=== PATIENT | male | born 1985 | race Caucasian/White ===

== ENCOUNTER 2021-05-03 12:32 | Emergency (ER) | payer OTHER ==
[~2021-05-03] VITALS: Ht 177.8 cm; Wt 82.0 kg
[2021-05-03 12:36] VITALS: BP 118/73
[2021-05-03] MEDS ORDERED: INSULIN (12:36)
[2021-05-03] MEDS ORDERED: ACETAMINOPHEN 325MG TABLET PO ONE (13:00)
[2021-05-03] MEDS ORDERED: BACITRACIN ZINC OINT UDPKT TOP ONE (13:00)
[2021-05-03] MEDS ORDERED: TETANUS, DIPHTHERIA, PERTUSSIS VAC/PF 0.5ML (>10YR OLD) IM ONE (13:00)
[2021-05-03] MEDS ORDERED: LIDOCAINE HCL/EPINEPHRINE 1%-EPI 1:100,000 20 ML VIAL INFIL ONE (13:00)
[2021-05-03] MEDS ORDERED: ACET-2708 MT (14:22)
[2021-05-03] MEDS ORDERED: BO1 TP (14:22)
== END 2021-05-03 15:11 | disposition home or self-care (01) ==
LOC: ER 12:32
DX: S01.81XA Laceration without foreign body of other part of head, initial encounter (principal); X79.XXXA Intentional self-harm by blunt object, initial encounter; F40.240 Claustrophobia; Y93.89 Activity, other specified; Y92.143 Cell of prison as the place of occurrence of the external cause; E11.9 Type 2 diabetes mellitus without complications
CPT/HCPCS: 12002; 90471; 90715; 99283

== ENCOUNTER 2022-08-26 00:43 | Inpatient (IN) | payer SELFPAY ==
[2022-08-26] VITALS (31 sets, daily range): BP systolic 109–141; BP diastolic 57–92
[~2022-08-26] VITALS: Ht 175.3 cm; Wt 81.6 kg
[~2022-08-26 00:43] MED LIST: ACET-2708 MT; BO1 TP; INSULIN
[2022-08-26] MEDS ORDERED: MIDAZOLAM HCL 2 MG/2 ML VIAL ONE (01:14)
[2022-08-26] MEDS ORDERED: PROPOFOL 10MG/ML 100ML 100 ML IV NR (01:15)
[2022-08-26] MEDS ORDERED: ONDANSETRON HCL 4MG/2ML INJ IV STA (01:26)
[2022-08-26] MEDS ORDERED: MORPHINE SULFATE 4 MG/ML CPJ (NOT FOR IM USE) IV STA (01:26)
[2022-08-26] MEDS ORDERED: SODIUM CHLORIDE 0.9% 1,000 ML IV ONE (01:30)
[2022-08-26] MEDS ORDERED: MIDAZOLAM HCL 2 MG/2 ML VIAL IV ONE (01:30)
[2022-08-26] MEDS ORDERED: PROPOFOL 10MG/ML 100ML 100 ML IV ONE ×2 (01:30→02:30)
[2022-08-26] MEDS ORDERED: SUCCINYLCHOLINE CHLORIDE 200MG/10ML IV ONE ×2 (01:30→09:53)
[2022-08-26] MEDS ORDERED: ETOMIDATE 2MG/ML 10ML VIAL IV ONE ×2 (01:30→09:53)
[2022-08-26 02:03] LABS: BG BASE EXCESS -2.6 mmol/L (-2.0-2.0); BG CARBOXYHEMOGLOBIN 1.1 % (0.5-1.5); BG DEOXYHEMOGLOBIN 2.4 % (0.0-5.0); BG FRACTION INSPIRED OXYGEN 40; BG HCO3 ACT 23.5 mmol/L (22.0-26.0); BG METHEMOGLOBIN 0.5 % (0.0-1.5); BG OXYGEN SATURATION 97.6 % (92.0-98.5); BG PCO2 45.5 mmHg (35.0-45.0); BG PH 7.331 (7.350-7.450); BG PO2 108.3 mmHg (75.0-100.0); BG SAMPLE SITE RIGHT RADIAL; BG TOTAL HEMOGLOBIN 14.2 g/dL (12.0-18.0); BG VENT MODE VENT - AC
[2022-08-26 02:15] LABS: CLARITY URINE CLEAR (CLEAR); COLOR URINE YELLOW (YELLOW); KETONES URINE 3+ (NEGATIVE); LEUKOCYTE ESTERASE URINE NEGATIVE (NEGATIVE); NITRITE URINE NEGATIVE (NEGATIVE); OCCULT BLOOD URINE NEGATIVE (NEGATIVE); PH URINE 6.5 (4.5-8.0); PROTEIN URINE NEGATIVE (NEGATIVE); SPECIFIC GRAVITY URINE 1.011 (1.005-1.030)
[2022-08-26 02:25] LABS: *AMPHETAMINES SCREEN URINE PRESUMTIVE POSITIVE (NEGATIVE); *BARBITURATES SCREEN URINE NEGATIVE (NEGATIVE); *BENZODIAZEPINES SCREEN URINE PRESUMTIVE POSITIVE (NEGATIVE); *COCAINE SCREEN URINE NEGATIVE (NEGATIVE); CANNABINOID URINE SCREEN PRESUMTIVE POSITIVE (NEGATIVE); METHADONE URINE SCREEN NEGATIVE (NEGATIVE); OPIATES URINE SCREEN NEGATIVE (NEGATIVE); PHENCYCLIDINE URINE SCREEN NEGATIVE (NEGATIVE)
[2022-08-26] MEDS ORDERED: MIDAZOLAM HCL 100 MG in DEXT 5% WATER 80 ML IV ONE (02:30)
[2022-08-26] MEDS ORDERED: MIDAZOLAM HCL 100 MG in DEXT 5% WATER 80 ML IV NR (02:30)
[2022-08-26 03:23] LABS: BASOPHILS % 0.3 % (0.0-2.0); EOSINOPHILS % 0.9 % (0.0-5.0); HEMATOCRIT. 39.7 % (42.0-52.0); HEMOGLOBIN. 13.2 g/dL (14.0-18.0); LYMPHOCYTES % 8.1 % (20.0-50.0); MEAN CORPUSCULAR HEMOGLOBIN 27.7 pg (28.0-32.0); MEAN CORPUSCULAR VOLUME 83.3 fL (80.0-94.0); MEAN PLATELET VOLUME 7.9 fl (7.4-10.4); MONOCYTES % 6.5 % (2.0-8.0); NEUTROPHILS % 84.2 % (40.0-76.0); PLATELET 265 x1000/uL (130-400); RED BLOOD CELL COUNT 4.77 mill/uL (4.7-6.1); RED CELL DISTRIBUTION WIDTH 15.1 % (11.6-14.6)
[2022-08-26 03:33] LABS: PROTHROMBIN TIME 11.2 sec (9.6-11.0)
[2022-08-26 03:34] LABS: CHLORIDE 105 mEq/L (98-107)
[2022-08-26 03:54] LABS: CREATINE KINASE 1698 IU/L (39-308); ETHANOL BLOOD < 10 mg/dL
[2022-08-26] MEDS ORDERED: MORPHINE SULFATE 4 MG/ML CPJ (NOT FOR IM USE) IV NR (05:15)
[2022-08-26] MEDS ORDERED: ONDANSETRON HCL 4MG/2ML INJ IV NR (05:15)
[2022-08-26] MEDS ORDERED: ONDANSETRON HCL 4MG/2ML INJ IV PRN (06:00)
[2022-08-26] MEDS ORDERED: PROPOFOL 10MG/ML 100ML 100 ML IV PRN (06:00)
[2022-08-26] MEDS ORDERED: IPRATROPIUM/ALBUTEROL 0.5-3(2.5)MG/3ML NEB HHN PRN (06:00)
[2022-08-26] MEDS ORDERED: DEXTROSE 50% WATER 50ML SYRINGE IV PRN (06:45)
[2022-08-26 06:58] LABS: BG BASE EXCESS 0.2 mmol/L (-2.0-2.0); BG CARBOXYHEMOGLOBIN 0.7 % (0.5-1.5); BG DEOXYHEMOGLOBIN 0.8 % (0.0-5.0); BG FRACTION INSPIRED OXYGEN 40; BG HCO3 ACT 26.4 mmol/L (22.0-26.0); BG METHEMOGLOBIN 0.6 % (0.0-1.5); BG OXYGEN SATURATION 99.2 % (92.0-98.5); BG OXYHEMOGLOBIN 97.9 % (94.0-97.0); BG PCO2 48.5 mmHg (35.0-45.0); BG PH 7.354 (7.350-7.450); BG PO2 157.2 mmHg (75.0-100.0); BG SAMPLE SITE RIGHT RADIAL; BG TOTAL HEMOGLOBIN 14.5 g/dL (12.0-18.0); BG VENT MODE VENT - AC
[2022-08-26 07:20] LABS: CREATINE KINASE MB FRACTION 16.5 ng/mL (0.5-3.6)
[2022-08-26 07:23] LABS: VITAMIN B12 SERUM 451 pg/mL (211-911)
[2022-08-26] MEDS ORDERED: KCL 20MEQ/100ML PREMIX 100 ML IV NR (08:00)
[2022-08-26 08:17] LABS: PHOSPHORUS 3.7 mg/dL (2.5-4.9)
[2022-08-26] MEDS: INSULIN LISPRO 100 UNITS/ML SUBCUT SCH ×4 (08:20→21:00)
[2022-08-26] MEDS: DEXT 5%/0.45% NACL 1000ML 1,000 ML IV SCH ×2 (09:18→21:19)
[2022-08-26] MEDS: PANTOPRAZOLE SODIUM 40 MG/VIAL IV SCH (09:20)
[2022-08-26] MEDS: BLOOD SUGAR DIAGNOSTIC STRIP TEST SCH ×4 (09:21→21:19)
[2022-08-26] MEDS: ENOXAPARIN 40MG/0.4ML SYR SUBCUT SCH (09:21)
[2022-08-26] MEDS ORDERED: FENTANYL 2500MCG/250ML PMX 250 ML IV PRN (09:30)
[2022-08-26] MEDS: FENTANYL CITRATE 2,500 MCG in SODIUM CHLORIDE 0.9% 200 ML IV PRN (09:49)
[2022-08-26] MEDS ORDERED: VECURONIUM BROMIDE 10 MG/VIAL IV ONE (09:53)
[2022-08-26] MEDS ORDERED: MIDAZOLAM 100MG/100ML PMX 100 ML IV PRN (11:00)
[2022-08-26] MEDS: MIDAZOLAM HCL 100 MG in SODIUM CHLORIDE 0.9% 100 ML IV PRN (12:23)
[2022-08-26] MEDS: PROPOFOL 10MG/ML 100ML 100 ML IV PRN ×2 (12:25→20:05)
[2022-08-26] MEDS: IPRATROPIUM/ALBUTEROL 0.5-3(2.5)MG/3ML NEB HHN SCH ×2 (14:03→20:10)
[2022-08-26 14:43] LABS: CREATINE KINASE MB FRACTION 12.8 ng/mL (0.5-3.6)
[2022-08-26 16:24] LABS: CREATINE KINASE MB FRACTION 9.8 ng/mL (0.5-3.6)
[2022-08-26 20:23] LABS: CREATINE KINASE MB FRACTION 6.6 ng/mL (0.5-3.6)
[2022-08-27] VITALS (48 sets, daily range): BP systolic 103–158; BP diastolic 58–100
[2022-08-27] MEDS: PROPOFOL 10MG/ML 100ML 100 ML IV PRN ×7 (00:13→23:36)
[2022-08-27] MEDS: MIDAZOLAM HCL 100 MG in SODIUM CHLORIDE 0.9% 100 ML IV PRN ×2 (01:30→11:46)
[2022-08-27 02:04] LABS: CREATINE KINASE MB FRACTION 4.2 ng/mL (0.5-3.6)
[2022-08-27] MEDS: IPRATROPIUM/ALBUTEROL 0.5-3(2.5)MG/3ML NEB HHN SCH ×4 (02:08→20:04)
[2022-08-27 05:52] LABS: BASOPHILS % 0.2 % (0.0-2.0); EOSINOPHILS % 2.2 % (0.0-5.0); HEMATOCRIT. 36.1 % (42.0-52.0); HEMOGLOBIN. 12.1 g/dL (14.0-18.0); LYMPHOCYTES % 15.4 % (20.0-50.0); MEAN CORPUSCULAR HEMOGLOBIN 28.3 pg (28.0-32.0); MEAN PLATELET VOLUME 7.9 fl (7.4-10.4); NEUTROPHILS % 72.2 % (40.0-76.0); PLATELET 252 x1000/uL (130-400); RED BLOOD CELL COUNT 4.29 mill/uL (4.7-6.1); RED CELL DISTRIBUTION WIDTH 15.3 % (11.6-14.6)
[2022-08-27 06:02] LABS: CHLORIDE 108 mEq/L (98-107)
[2022-08-27 06:22] LABS: T4 FREE 1.23 ng/dL (0.76-1.46)
[2022-08-27] MEDS: KCL 20MEQ/100ML PREMIX 100 ML IV SCH ×2 (07:00→09:27)
[2022-08-27 07:47] LABS: PHOSPHORUS 2.4 mg/dL (2.5-4.9)
[2022-08-27] MEDS: INSULIN LISPRO 100 UNITS/ML SUBCUT SCH ×4 (08:06→21:00)
[2022-08-27] MEDS: BLOOD SUGAR DIAGNOSTIC STRIP TEST SCH ×4 (08:06→21:07)
[2022-08-27] MEDS: PANTOPRAZOLE SODIUM 40 MG/VIAL IV SCH (09:26)
[2022-08-27] MEDS: ENOXAPARIN 40MG/0.4ML SYR SUBCUT SCH (09:27)
[2022-08-27] MEDS: DEXT 5%/0.45% NACL 1000ML 1,000 ML IV SCH ×2 (10:08→23:36)
[2022-08-27] MEDS ORDERED: POTASSIUM PHOS,M-BASIC-D-BASIC 15 MMOL in DEXTROSE 5% WATER 250 ML IV NR (11:00)
[2022-08-27] MEDS ORDERED: POTASSIUM PHOS,M-BASIC-D-BASIC 30 MMOL in DEXT 5% WATER 500 ML IV NR (11:00)
[2022-08-27] MEDS: CHLORDIAZEPOXIDE 5 MG CAPSULE PO SCH ×2 (14:09→21:13)
[2022-08-27 14:10] LABS: BG BASE EXCESS 0.1 mmol/L (-2.0-2.0); BG CARBOXYHEMOGLOBIN 0.3 % (0.5-1.5); BG DEOXYHEMOGLOBIN 2.9 % (0.0-5.0); BG FRACTION INSPIRED OXYGEN 35; BG HCO3 ACT 24.6 mmol/L (22.0-26.0); BG METHEMOGLOBIN 0.1 % (0.0-1.5); BG OXYGEN SATURATION 97.1 % (92.0-98.5); BG OXYHEMOGLOBIN 96.7 % (94.0-97.0); BG PCO2 39.3 mmHg (35.0-45.0); BG PH 7.414 (7.350-7.450); BG PO2 93.3 mmHg (75.0-100.0); BG SAMPLE SITE RIGHT RADIAL; BG TOTAL HEMOGLOBIN 13.5 g/dL (12.0-18.0); BG VENT MODE VENT - AC
[2022-08-27] MEDS ORDERED: THIAMINE HCL 100 MG in SODIUM CHLORIDE 0.9% 49 ML IV NR (17:00)
[2022-08-27 21:08] LABS: FOLIC ACID (FOLATE) SERUM > 20.00 ng/mL (>5.38)
[2022-08-28] VITALS (47 sets, daily range): BP systolic 107–165; BP diastolic 58–111
[2022-08-28] MEDS: MIDAZOLAM HCL 100 MG in SODIUM CHLORIDE 0.9% 100 ML IV PRN ×2 (00:20→12:47)
[2022-08-28] MEDS: IPRATROPIUM/ALBUTEROL 0.5-3(2.5)MG/3ML NEB HHN SCH ×4 (02:00→19:48)
[2022-08-28] MEDS: PROPOFOL 10MG/ML 100ML 100 ML IV PRN ×7 (03:15→22:52)
[2022-08-28 05:35] LABS: BASOPHILS % 0.3 % (0.0-2.0); EOSINOPHILS % 2.7 % (0.0-5.0); HEMATOCRIT. 36.4 % (42.0-52.0); HEMOGLOBIN. 12.1 g/dL (14.0-18.0); LYMPHOCYTES % 17.6 % (20.0-50.0); MEAN CORPUSCULAR HEMOGLOBIN 28.4 pg (28.0-32.0); MEAN CORPUSCULAR VOLUME 85.1 fL (80.0-94.0); MONOCYTES % 13.9 % (2.0-8.0); NEUTROPHILS % 65.5 % (40.0-76.0); PLATELET 239 x1000/uL (130-400); RED BLOOD CELL COUNT 4.28 mill/uL (4.7-6.1); RED CELL DISTRIBUTION WIDTH 15.6 % (11.6-14.6)
[2022-08-28 05:43] LABS: CHLORIDE 105 mEq/L (98-107)
[2022-08-28] MEDS: CHLORDIAZEPOXIDE 5 MG CAPSULE PO SCH ×3 (06:05→20:33)
[2022-08-28] MEDS: KCL 20MEQ/100ML PREMIX 100 ML IV SCH ×2 (06:52→08:44)
[2022-08-28] MEDS: INSULIN LISPRO 100 UNITS/ML SUBCUT SCH ×4 (08:20→20:51)
[2022-08-28] MEDS: BLOOD SUGAR DIAGNOSTIC STRIP TEST SCH ×4 (08:43→20:51)
[2022-08-28] MEDS: PANTOPRAZOLE SODIUM 40 MG/VIAL IV SCH (08:44)
[2022-08-28] MEDS: ENOXAPARIN 40MG/0.4ML SYR SUBCUT SCH (08:44)
[2022-08-28] MEDS: THIAMINE HCL 100MG TABLET NG SCH (08:48)
[2022-08-28] MEDS: FOLIC ACID 1MG TABLET NG SCH (08:48)
[2022-08-28 08:54] LABS: BG BASE EXCESS -0.9 mmol/L (-2.0-2.0); BG CARBOXYHEMOGLOBIN 0.3 % (0.5-1.5); BG DEOXYHEMOGLOBIN 2.5 % (0.0-5.0); BG FRACTION INSPIRED OXYGEN 35; BG HCO3 ACT 22.8 mmol/L (22.0-26.0); BG OXYGEN SATURATION 97.5 % (92.0-98.5); BG OXYHEMOGLOBIN 97.2 % (94.0-97.0); BG PCO2 34.8 mmHg (35.0-45.0); BG PH 7.434 (7.350-7.450); BG PO2 95.1 mmHg (75.0-100.0); BG TOTAL HEMOGLOBIN 13.3 g/dL (12.0-18.0); BG VENT MODE VENT - AC
[2022-08-28] MEDS: DEXT 5%/0.45% NACL 1000ML 1,000 ML IV SCH (12:46)
[2022-08-28 12:51] LABS: PHOSPHORUS 3.3 mg/dL (2.5-4.9)
[2022-08-28] MEDS: LACTULOSE 20G/30ML UDC PO SCH ×2 (13:48→20:32)
[2022-08-28] MEDS: PIPERACILLIN/TAZOBACTAM 3.375 G in DEXTROSE 5% WATER 50 ML IV SCH ×2 (13:48→21:42)
[2022-08-28] MEDS ORDERED: POTASSIUM CHLORIDE INJ 40 MEQ in DEXT 5% WATER 250 ML IV NR (18:45)
[2022-08-28] MEDS: FENTANYL CITRATE 2,500 MCG in SODIUM CHLORIDE 0.9% 200 ML IV PRN (19:24)
[2022-08-28] MEDS: BENZTROPINE MESYLATE 1MG TABLET PO SCH (20:33)
[2022-08-28] MEDS: QUETIAPINE FUMARATE 50MG TABLET PO SCH (20:33)
[2022-08-28] MEDS: HALOPERIDOL LACTATE 5MG/ML VIAL IM SCH (20:34)
[2022-08-28] MEDS: ENOXAPARIN 30MG/0.3ML SYR SUBCUT SCH (20:34)
[2022-08-29] VITALS (48 sets, daily range): BP systolic 94–168; BP diastolic 20–129
[2022-08-29] MEDS: DEXT 5%/0.45% NACL 1000ML 1,000 ML IV SCH ×2 (01:40→17:20)
[2022-08-29] MEDS: IPRATROPIUM/ALBUTEROL 0.5-3(2.5)MG/3ML NEB HHN SCH ×4 (01:56→20:07)
[2022-08-29] MEDS: PROPOFOL 10MG/ML 100ML 100 ML IV PRN ×5 (02:03→22:04)
[2022-08-29] MEDS: MIDAZOLAM HCL 100 MG in SODIUM CHLORIDE 0.9% 100 ML IV PRN ×2 (03:09→17:20)
[2022-08-29] MEDS: LACTULOSE 20G/30ML UDC PO SCH ×3 (05:38→21:32)
[2022-08-29] MEDS: PIPERACILLIN/TAZOBACTAM 3.375 G in DEXTROSE 5% WATER 50 ML IV SCH ×3 (05:39→21:32)
[2022-08-29] MEDS: CHLORDIAZEPOXIDE 5 MG CAPSULE PO SCH (05:39)
[2022-08-29] MEDS: BLOOD SUGAR DIAGNOSTIC STRIP TEST SCH ×4 (07:25→20:41)
[2022-08-29] MEDS: INSULIN LISPRO 100 UNITS/ML SUBCUT SCH ×3 (07:26→21:00)
[2022-08-29 08:28] LABS: BG BASE EXCESS -2.4 mmol/L (-2.0-2.0); BG CARBOXYHEMOGLOBIN 0.3 % (0.5-1.5); BG DEOXYHEMOGLOBIN 3.7 % (0.0-5.0); BG FRACTION INSPIRED OXYGEN 40; BG HCO3 ACT 22.9 mmol/L (22.0-26.0); BG METHEMOGLOBIN 0.3 % (0.0-1.5); BG OXYGEN SATURATION 96.3 % (92.0-98.5); BG OXYHEMOGLOBIN 95.7 % (94.0-97.0); BG PCO2 41.6 mmHg (35.0-45.0); BG PH 7.359 (7.350-7.450); BG PO2 90.1 mmHg (75.0-100.0); BG SAMPLE SITE RIGHT RADIAL; BG TOTAL RESPIRATORY RATE 21 b/min; BG VENT MODE VENT - AC
[2022-08-29] MEDS: PANTOPRAZOLE SODIUM 40 MG/VIAL IV SCH (09:30)
[2022-08-29] MEDS: HALOPERIDOL LACTATE 5MG/ML VIAL IM SCH ×2 (10:28→20:39)
[2022-08-29] MEDS: FOLIC ACID 1MG TABLET NG SCH (10:28)
[2022-08-29] MEDS: ENOXAPARIN 30MG/0.3ML SYR SUBCUT SCH ×2 (10:28→20:41)
[2022-08-29] MEDS: THIAMINE HCL 100MG TABLET NG SCH (10:29)
[2022-08-29] MEDS: QUETIAPINE FUMARATE 50MG TABLET PO SCH (10:29)
[2022-08-29] MEDS: BENZTROPINE MESYLATE 1MG TABLET PO SCH ×2 (10:29→20:40)
[2022-08-29 12:15] LABS: BG BASE EXCESS -5.3 mmol/L (-2.0-2.0); BG CARBOXYHEMOGLOBIN 0.3 % (0.5-1.5); BG DEOXYHEMOGLOBIN 16.1 % (0.0-5.0); BG HCO3 ACT 21.1 mmol/L (22.0-26.0); BG METHEMOGLOBIN 0.5 % (0.0-1.5); BG OXYGEN SATURATION 83.8 % (92.0-98.5); BG OXYHEMOGLOBIN 83.1 % (94.0-97.0); BG PCO2 44.4 mmHg (35.0-45.0); BG PH 7.295 (7.350-7.450); BG PO2 52.9 mmHg (75.0-100.0); BG SAMPLE SITE RIGHT RADIAL; BG VENT MODE VENT - SIMV
[2022-08-29] MEDS: CHLORDIAZEPOXIDE 25MG CAPSULE PO SCH ×2 (14:00→21:33)
[2022-08-29] MEDS: FERROUS SULFATE 325MG TABLET PO SCH ×2 (14:02→18:29)
[2022-08-29 16:02] LABS: HEMOGLOBIN 11.2 g/dL (14.0-18.0); MEAN CORPUSCULAR HEMOGLOBIN 27.4 pg (28.0-32.0); MEAN CORPUSCULAR VOLUME 83.1 fL (80.0-94.0); PLATELET 260 x1000/uL (130-400); RED BLOOD CELL COUNT 4.09 mill/uL (4.7-6.1); RED CELL DISTRIBUTION WIDTH 15.3 % (11.6-14.6)
[2022-08-29 16:25] LABS: CHLORIDE 114 mEq/L (98-107)
[2022-08-29] MEDS: RISPERIDONE 1MG TABLET PO SCH (20:40)
[2022-08-30] VITALS (46 sets, daily range): BP systolic 94–151; BP diastolic 25–97
[2022-08-30] MEDS: IPRATROPIUM/ALBUTEROL 0.5-3(2.5)MG/3ML NEB HHN SCH ×4 (01:39→20:27)
[2022-08-30] MEDS: POTASSIUM CHLORIDE INJ 10 MEQ in DEXTROSE 5% WATER 1,000 ML IV SCH ×2 (01:40→15:08)
[2022-08-30] MEDS: PROPOFOL 10MG/ML 100ML 100 ML IV PRN ×4 (03:17→19:50)
[2022-08-30 05:30] LABS: BASOPHILS % 0.3 % (0.0-2.0); EOSINOPHILS % 5.4 % (0.0-5.0); HEMATOCRIT. 34.2 % (42.0-52.0); HEMOGLOBIN. 11.4 g/dL (14.0-18.0); LYMPHOCYTES % 16.7 % (20.0-50.0); MEAN CORPUSCULAR HEMOGLOBIN 27.8 pg (28.0-32.0); MEAN CORPUSCULAR VOLUME 83.7 fL (80.0-94.0); MEAN PLATELET VOLUME 7.9 fl (7.4-10.4); NEUTROPHILS % 69.6 % (40.0-76.0); PLATELET 237 x1000/uL (130-400); RED BLOOD CELL COUNT 4.08 mill/uL (4.7-6.1); RED CELL DISTRIBUTION WIDTH 15.8 % (11.6-14.6)
[2022-08-30] MEDS: PIPERACILLIN/TAZOBACTAM 3.375 G in DEXTROSE 5% WATER 50 ML IV SCH ×3 (05:36→21:18)
[2022-08-30] MEDS: LACTULOSE 20G/30ML UDC PO SCH ×3 (05:36→21:18)
[2022-08-30] MEDS: CHLORDIAZEPOXIDE 25MG CAPSULE PO SCH ×3 (05:36→21:18)
[2022-08-30 06:01] LABS: CHLORIDE 113 mEq/L (98-107)
[2022-08-30 06:10] LABS: PHOSPHORUS 3.1 mg/dL (2.5-4.9)
[2022-08-30] MEDS: BLOOD SUGAR DIAGNOSTIC STRIP TEST SCH ×4 (08:13→21:10)
[2022-08-30] MEDS: INSULIN LISPRO 100 UNITS/ML SUBCUT SCH ×4 (08:13→21:00)
[2022-08-30] MEDS: FERROUS SULFATE 325MG TABLET PO SCH ×3 (08:14→17:03)
[2022-08-30] MEDS: FOLIC ACID 1MG TABLET NG SCH (08:14)
[2022-08-30] MEDS: RISPERIDONE 1MG TABLET PO SCH ×2 (08:14→21:18)
[2022-08-30] MEDS: ENOXAPARIN 30MG/0.3ML SYR SUBCUT SCH ×2 (08:14→21:18)
[2022-08-30] MEDS: HALOPERIDOL LACTATE 5MG/ML VIAL IM SCH ×2 (08:14→21:19)
[2022-08-30] MEDS: THIAMINE HCL 100MG TABLET NG SCH (08:14)
[2022-08-30] MEDS: PANTOPRAZOLE SODIUM 40 MG/VIAL IV SCH (08:14)
[2022-08-30] MEDS: BENZTROPINE MESYLATE 1MG TABLET PO SCH ×2 (08:15→21:18)
[2022-08-30] MEDS: MIDAZOLAM HCL 100 MG in SODIUM CHLORIDE 0.9% 100 ML IV PRN ×2 (10:39→21:19)
[2022-08-30] MEDS: FENTANYL CITRATE 2,500 MCG in SODIUM CHLORIDE 0.9% 200 ML IV PRN (13:14)
[2022-08-30 15:07] LABS: BG BASE EXCESS -4.1 mmol/L (-2.0-2.0); BG CARBOXYHEMOGLOBIN 0.3 % (0.5-1.5); BG DEOXYHEMOGLOBIN 3.7 % (0.0-5.0); BG FRACTION INSPIRED OXYGEN 40; BG HCO3 ACT 19.2 mmol/L (22.0-26.0); BG METHEMOGLOBIN 0.4 % (0.0-1.5); BG OXYGEN SATURATION 96.3 % (92.0-98.5); BG OXYHEMOGLOBIN 95.6 % (94.0-97.0); BG PCO2 29.7 mmHg (35.0-45.0); BG PH 7.428 (7.350-7.450); BG PO2 86.3 mmHg (75.0-100.0); BG SAMPLE SITE LEFT RADIAL; BG TOTAL HEMOGLOBIN 11.6 g/dL (12.0-18.0); BG TOTAL RESPIRATORY RATE 22 b/min; BG VENT MODE VENT - AC
[2022-08-30] MEDS: HYDROXYZINE 10 MG TABLET NG SCH (17:03)
[2022-08-30] MEDS: ACETAMINOPHEN 325MG TABLET PO PRN ×2 (17:03→21:18)
[2022-08-31] VITALS (48 sets, daily range): BP systolic 108–177; BP diastolic 29–106
[2022-08-31] MEDS: PROPOFOL 10MG/ML 100ML 100 ML IV PRN ×2 (01:08→04:50)
[2022-08-31] MEDS: IPRATROPIUM/ALBUTEROL 0.5-3(2.5)MG/3ML NEB HHN SCH ×2 (01:38→08:44)
[2022-08-31] MEDS: POTASSIUM CHLORIDE INJ 10 MEQ in DEXTROSE 5% WATER 1,000 ML IV SCH ×2 (03:38→17:32)
[2022-08-31] MEDS: ACETAMINOPHEN 325MG TABLET PO PRN ×3 (04:09→23:22)
[2022-08-31] MEDS: LACTULOSE 20G/30ML UDC PO SCH ×3 (05:13→21:27)
[2022-08-31] MEDS: CHLORDIAZEPOXIDE 25MG CAPSULE PO SCH (05:13)
[2022-08-31] MEDS: PIPERACILLIN/TAZOBACTAM 3.375 G in DEXTROSE 5% WATER 50 ML IV SCH ×3 (05:13→21:27)
[2022-08-31 05:57] LABS: CHLORIDE 109 mEq/L (98-107)
[2022-08-31 05:59] LABS: HEMATOCRIT 32.9 % (42.0-52.0); HEMOGLOBIN 10.9 g/dL (14.0-18.0); MEAN CORPUSCULAR HEMOGLOBIN 27.8 pg (28.0-32.0); MEAN CORPUSCULAR VOLUME 83.7 fL (80.0-94.0); PLATELET 240 x1000/uL (130-400); RED BLOOD CELL COUNT 3.93 mill/uL (4.7-6.1); RED CELL DISTRIBUTION WIDTH 15.5 % (11.6-14.6)
[2022-08-31 06:02] LABS: PHOSPHORUS 2.6 mg/dL (2.5-4.9)
[2022-08-31] MEDS ORDERED: MAGNESIUM 2 G PREMIX 50 ML IV NR (07:00)
[2022-08-31] MEDS ORDERED: KCL 20MEQ/100ML PREMIX 100 ML IV NR (07:00)
[2022-08-31] MEDS: MIDAZOLAM HCL 100 MG in SODIUM CHLORIDE 0.9% 100 ML IV PRN (07:33)
[2022-08-31] MEDS: INSULIN LISPRO 100 UNITS/ML SUBCUT SCH ×4 (08:20→21:52)
[2022-08-31] MEDS: BLOOD SUGAR DIAGNOSTIC STRIP TEST SCH ×4 (08:31→21:45)
[2022-08-31 08:33] LABS: BG BASE EXCESS -1.6 mmol/L (-2.0-2.0); BG CARBOXYHEMOGLOBIN 0.3 % (0.5-1.5); BG DEOXYHEMOGLOBIN 7.6 % (0.0-5.0); BG FRACTION INSPIRED OXYGEN 50; BG HCO3 ACT 23.4 mmol/L (22.0-26.0); BG METHEMOGLOBIN 0.5 % (0.0-1.5); BG OXYGEN SATURATION 92.3 % (92.0-98.5); BG OXYHEMOGLOBIN 91.6 % (94.0-97.0); BG PCO2 40.6 mmHg (35.0-45.0); BG PH 7.378 (7.350-7.450); BG PO2 66.5 mmHg (75.0-100.0); BG SAMPLE SITE RH; BG TOTAL HEMOGLOBIN 11.7 g/dL (12.0-18.0); BG VENT MODE VENT - AC
[2022-08-31] MEDS: THIAMINE HCL 100MG TABLET NG SCH (09:02)
[2022-08-31] MEDS: RISPERIDONE 1MG TABLET PO SCH ×2 (09:02→20:29)
[2022-08-31] MEDS: HALOPERIDOL LACTATE 5MG/ML VIAL IM SCH (09:02)
[2022-08-31] MEDS: PANTOPRAZOLE SODIUM 40 MG/VIAL IV SCH (09:02)
[2022-08-31] MEDS: FOLIC ACID 1MG TABLET NG SCH (09:02)
[2022-08-31] MEDS: FERROUS SULFATE 325MG TABLET PO SCH ×3 (09:02→17:32)
[2022-08-31] MEDS: HYDROXYZINE 10 MG TABLET NG SCH ×3 (09:03→17:32)
[2022-08-31] MEDS: ENOXAPARIN 30MG/0.3ML SYR SUBCUT SCH ×2 (09:03→20:30)
[2022-08-31] MEDS: BENZTROPINE MESYLATE 1MG TABLET PO SCH (09:03)
[2022-08-31 10:27] LABS: BG BASE EXCESS -0.6 mmol/L (-2.0-2.0); BG CARBOXYHEMOGLOBIN 0.3 % (0.5-1.5); BG DEOXYHEMOGLOBIN 4.3 % (0.0-5.0); BG FRACTION INSPIRED OXYGEN 35; BG HCO3 ACT 22.8 mmol/L (22.0-26.0); BG METHEMOGLOBIN 0.5 % (0.0-1.5); BG OXYGEN SATURATION 95.7 % (92.0-98.5); BG OXYHEMOGLOBIN 94.9 % (94.0-97.0); BG PCO2 33.5 mmHg (35.0-45.0); BG PO2 76.8 mmHg (75.0-100.0); BG SAMPLE SITE RIGHT RADIAL; BG TOTAL HEMOGLOBIN 12.3 g/dL (12.0-18.0); BG VENT MODE VENT - CPAP
[2022-08-31 13:10] LABS: CHLORIDE 107 mEq/L (98-107)
[2022-08-31] MEDS: CHLORDIAZEPOXIDE 5 MG CAPSULE PO SCH ×2 (13:48→21:27)
[2022-08-31] MEDS: CLONIDINE 0.1MG TABLET PO PRN (22:00)
[2022-09-01] VITALS (34 sets, daily range): BP systolic 121–174; BP diastolic 35–115
[2022-09-01] MEDS: CLONIDINE 0.1MG TABLET PO PRN (04:20)
[2022-09-01 05:28] LABS: HEMATOCRIT 33.4 % (42.0-52.0); HEMOGLOBIN 10.9 g/dL (14.0-18.0); MEAN CORPUSCULAR HEMOGLOBIN 27.4 pg (28.0-32.0); MEAN CORPUSCULAR VOLUME 83.8 fL (80.0-94.0); PLATELET 247 x1000/uL (130-400); RED BLOOD CELL COUNT 3.99 mill/uL (4.7-6.1); RED CELL DISTRIBUTION WIDTH 15.5 % (11.6-14.6)
[2022-09-01 05:52] LABS: CHLORIDE 107 mEq/L (98-107)
[2022-09-01 06:02] LABS: PHOSPHORUS 2.8 mg/dL (2.5-4.9)
[2022-09-01] MEDS: POTASSIUM CHLORIDE INJ 10 MEQ in DEXTROSE 5% WATER 1,000 ML IV SCH ×2 (06:02→20:53)
[2022-09-01] MEDS: PIPERACILLIN/TAZOBACTAM 3.375 G in DEXTROSE 5% WATER 50 ML IV SCH ×3 (06:02→21:18)
[2022-09-01] MEDS: LACTULOSE 20G/30ML UDC PO SCH ×3 (06:02→21:18)
[2022-09-01] MEDS: CHLORDIAZEPOXIDE 5 MG CAPSULE PO SCH ×3 (06:03→21:18)
[2022-09-01] MEDS: BLOOD SUGAR DIAGNOSTIC STRIP TEST SCH ×4 (08:14→21:18)
[2022-09-01] MEDS: INSULIN LISPRO 100 UNITS/ML SUBCUT SCH ×4 (08:17→21:00)
[2022-09-01] MEDS ORDERED: POTASSIUM CHLORIDE INJ 40 MEQ in DEXT 5% WATER 500 ML IV NR (09:00)
[2022-09-01] MEDS: FERROUS SULFATE 325MG TABLET PO SCH ×3 (09:32→17:30)
[2022-09-01] MEDS: HYDROXYZINE 10 MG TABLET NG SCH ×3 (09:32→17:30)
[2022-09-01] MEDS: PANTOPRAZOLE SODIUM 40 MG/VIAL IV SCH (09:32)
[2022-09-01] MEDS: FOLIC ACID 1MG TABLET NG SCH (09:32)
[2022-09-01] MEDS: RISPERIDONE 1MG TABLET PO SCH ×2 (09:32→21:18)
[2022-09-01] MEDS: THIAMINE HCL 100MG TABLET NG SCH (09:32)
[2022-09-01] MEDS: ENOXAPARIN 30MG/0.3ML SYR SUBCUT SCH (09:33)
[2022-09-02] VITALS (9 sets, daily range): BP systolic 98–136; BP diastolic 69–83
[2022-09-02] MEDS: LACTULOSE 20G/30ML UDC PO SCH ×3 (05:15→21:32)
[2022-09-02] MEDS: CHLORDIAZEPOXIDE 5 MG CAPSULE PO SCH ×3 (05:15→21:32)
[2022-09-02] MEDS: PIPERACILLIN/TAZOBACTAM 3.375 G in DEXTROSE 5% WATER 50 ML IV SCH ×2 (05:16→17:31)
[2022-09-02 05:55] LABS: HEMATOCRIT 33.4 % (42.0-52.0); HEMOGLOBIN 11.1 g/dL (14.0-18.0); MEAN CORPUSCULAR HEMOGLOBIN 27.7 pg (28.0-32.0); MEAN CORPUSCULAR VOLUME 83.4 fL (80.0-94.0); PLATELET 275 x1000/uL (130-400); RED CELL DISTRIBUTION WIDTH 15.5 % (11.6-14.6)
[2022-09-02 06:16] LABS: CHLORIDE 109 mEq/L (98-107)
[2022-09-02 06:19] LABS: PHOSPHORUS 3.8 mg/dL (2.5-4.9)
[2022-09-02] MEDS: INSULIN LISPRO 100 UNITS/ML SUBCUT SCH ×4 (07:20→21:00)
[2022-09-02] MEDS: BLOOD SUGAR DIAGNOSTIC STRIP TEST SCH ×4 (07:47→21:32)
[2022-09-02] MEDS ORDERED: POTASSIUM CHLORIDE 20MEQ/PACKET PO NR (08:15)
[2022-09-02] MEDS: FERROUS SULFATE 325MG TABLET PO SCH ×3 (08:17→17:31)
[2022-09-02] MEDS: RISPERIDONE 1MG TABLET PO SCH ×2 (09:41→21:32)
[2022-09-02] MEDS: PANTOPRAZOLE SODIUM 40 MG/VIAL IV SCH (09:41)
[2022-09-02] MEDS: THIAMINE HCL 100MG TABLET NG SCH (09:41)
[2022-09-02] MEDS: ENOXAPARIN 40MG/0.4ML SYR SUBCUT SCH (09:41)
[2022-09-02] MEDS: FOLIC ACID 1MG TABLET NG SCH (09:41)
[2022-09-02] MEDS: HYDROXYZINE 10 MG TABLET NG SCH ×3 (09:41→17:31)
[2022-09-02] MEDS: POTASSIUM CHLORIDE INJ 10 MEQ in DEXTROSE 5% WATER 1,000 ML IV SCH (10:52)
[2022-09-03] VITALS: BP 119/70
[2022-09-03] MEDS: DEXT 5% WATER + KCL 20MEQ/L 1,000 ML IV SCH ×2 (01:57→13:10)
[2022-09-03 04:00] VITALS: BP 109/64
[2022-09-03] MEDS: CHLORDIAZEPOXIDE 5 MG CAPSULE PO SCH ×3 (06:00→22:44)
[2022-09-03] MEDS: LACTULOSE 20G/30ML UDC PO SCH ×3 (06:00→22:00)
[2022-09-03 06:46] LABS: HEMATOCRIT 34.1 % (42.0-52.0); HEMOGLOBIN 11.4 g/dL (14.0-18.0); MEAN CORPUSCULAR HEMOGLOBIN 27.9 pg (28.0-32.0); MEAN CORPUSCULAR VOLUME 83.4 fL (80.0-94.0); PLATELET 364 x1000/uL (130-400); RED BLOOD CELL COUNT 4.09 mill/uL (4.7-6.1); RED CELL DISTRIBUTION WIDTH 15.6 % (11.6-14.6)
[2022-09-03] MEDS: BLOOD SUGAR DIAGNOSTIC STRIP TEST SCH ×4 (07:03→21:00)
[2022-09-03] MEDS: INSULIN LISPRO 100 UNITS/ML SUBCUT SCH ×4 (07:20→21:00)
[2022-09-03] MEDS: FERROUS SULFATE 325MG TABLET PO SCH ×3 (07:20→17:50)
[2022-09-03 08:00] VITALS: BP 131/86
[2022-09-03 08:26] LABS: CHLORIDE 111 mEq/L (98-107)
[2022-09-03 08:31] LABS: PHOSPHORUS 3.7 mg/dL (2.5-4.9)
[2022-09-03] MEDS: HYDROXYZINE 10 MG TABLET NG SCH ×3 (09:00→17:00)
[2022-09-03] MEDS: PANTOPRAZOLE SODIUM 40 MG/VIAL IV SCH ×2 (09:00→13:11)
[2022-09-03 12:00] VITALS: BP 110/67
[2022-09-03] MEDS: ENOXAPARIN 40MG/0.4ML SYR SUBCUT SCH (13:10)
[2022-09-03] MEDS: MULTIVITAMINS,THER W-MINERALS TABLET PO SCH (13:11)
[2022-09-03] MEDS: THIAMINE HCL 100MG TABLET NG SCH (13:11)
[2022-09-03] MEDS: FOLIC ACID 1MG TABLET NG SCH (13:11)
[2022-09-03 16:00] VITALS: BP 106/65
[2022-09-03 20:00] VITALS: BP 116/67
[2022-09-03] MEDS: RISPERIDONE 1MG TABLET PO SCH (22:27)
[2022-09-04] VITALS: BP 125/78
[2022-09-04 04:00] VITALS: BP 128/77
[2022-09-04] MEDS: LACTULOSE 20G/30ML UDC PO SCH (06:12)
[2022-09-04] MEDS: CHLORDIAZEPOXIDE 5 MG CAPSULE PO SCH (06:12)
[2022-09-04] MEDS: FERROUS SULFATE 325MG TABLET PO SCH (06:12)
[2022-09-04 07:05] LABS: HEMATOCRIT 33.9 % (42.0-52.0); HEMOGLOBIN 11.4 g/dL (14.0-18.0); MEAN CORPUSCULAR HEMOGLOBIN 27.9 pg (28.0-32.0); PLATELET 417 x1000/uL (130-400); RED BLOOD CELL COUNT 4.09 mill/uL (4.7-6.1); RED CELL DISTRIBUTION WIDTH 15.1 % (11.6-14.6)
[2022-09-04 07:39] LABS: CHLORIDE 110 mEq/L (98-107)
[2022-09-04] MEDS: BLOOD SUGAR DIAGNOSTIC STRIP TEST SCH ×2 (07:42→12:23)
[2022-09-04 07:48] LABS: PHOSPHORUS 3.4 mg/dL (2.5-4.9)
[2022-09-04] MEDS: INSULIN LISPRO 100 UNITS/ML SUBCUT SCH ×2 (07:50→12:23)
[2022-09-04 08:00] VITALS: BP 97/60
[2022-09-04] MEDS: HYDROXYZINE 10 MG TABLET NG SCH (08:58)
[2022-09-04] MEDS: THIAMINE HCL 100MG TABLET NG SCH (08:58)
[2022-09-04] MEDS: MULTIVITAMINS,THER W-MINERALS TABLET PO SCH (08:58)
[2022-09-04] MEDS: RISPERIDONE 1MG TABLET PO SCH (08:58)
[2022-09-04] MEDS: FOLIC ACID 1MG TABLET NG SCH (08:59)
[2022-09-04] MEDS: ENOXAPARIN 40MG/0.4ML SYR SUBCUT SCH (08:59)
[2022-09-04] MEDS ORDERED: FOLI-43 NG (10:06)
[2022-09-04] MEDS ORDERED: THIA100T72 NG (10:06)
[2022-09-04] MEDS ORDERED: FERR-63 PO (10:06)
[2022-09-04 12:00] VITALS: BP 109/71
[2022-09-04 13:04] VITALS: BP 109/71
[2022-09-04 16:00] VITALS: BP 108/63
== END 2022-09-04 15:17 | disposition home or self-care (01) | DRG 720 ==
LOC: ER 00:43 → CVICU 04:32 → EDBEDREQSVC 04:53 → 3WST 09-02 02:31 → 6EST 09-03 14:46
PROVIDERS: ADMIT Internal Medicine; ATTEND Internal Medicine
PROC: 5A1955Z Respiratory Ventilation, Greater than 96 Consecutive Hours (ICD-10-PCS; principal; 2022-08-26)
PROC: 02HV33Z Insertion of Infusion Device into Superior Vena Cava, Percutaneous Approach (ICD-10-PCS; 2022-08-26)
PROC: B548ZZA Ultrasonography of Superior Vena Cava, Guidance (ICD-10-PCS; 2022-08-26)
PROC: 0BH17EZ Insertion of Endotracheal Airway into Trachea, Via Natural or Artificial Opening (ICD-10-PCS; 2022-08-26)
DX: A41.59 Other Gram-negative sepsis (principal); J96.01 Acute respiratory failure with hypoxia; I21.4 Non-ST elevation (NSTEMI) myocardial infarction; G92.8 Other toxic encephalopathy; J15.0 Pneumonia due to Klebsiella pneumoniae; E44.0 Moderate protein-calorie malnutrition; E72.20 Disorder of urea cycle metabolism, unspecified; J15.6 Pneumonia due to other Gram-negative bacteria; T42.4X1A Poisoning by benzodiazepines, accidental (unintentional), initial encounter; T40.711A Poisoning by cannabis, accidental (unintentional), initial encounter; E87.0 Hyperosmolality and hypernatremia; E83.51 Hypocalcemia; M62.82 Rhabdomyolysis; E11.65 Type 2 diabetes mellitus with hyperglycemia; N17.9 Acute kidney failure, unspecified; F32.A Depression, unspecified; R74.01 Elevation of levels of liver transaminase levels; E87.6 Hypokalemia; D50.9 Iron deficiency anemia, unspecified; E83.39 Other disorders of phosphorus metabolism; F15.10 Other stimulant abuse, uncomplicated; F12.10 Cannabis abuse, uncomplicated; F20.9 Schizophrenia, unspecified; Y92.89 Other specified places as the place of occurrence of the external cause; Z79.1 Long term (current) use of non-steroidal anti-inflammatories (NSAID); Z79.899 Other long term (current) drug therapy; Z78.1 Physical restraint status; Z59.00 Homelessness unspecified; Z91.199 Patient's noncompliance with other medical treatment and regimen due to unspecified reason
CPT/HCPCS: 31500; 36415; 36600; 71045; 80048; 80053; 80061; 80305; 80307; 80320; 80329; 81003; 82140; 82375; 82550; 82553; 82607; 82746; 82805; 82962; 83036; 83540; 83550; 83605; 83735; 83880; 84100; 84145; 84439; 84443; 84478; 84481; 84484; 85025; 85027; 87070; 87077; 87186; 92610; 93005; 93306; 93970; 94002; 94003; 94640; 97162; 97166; 97530; 99291; C9113; J0330; J1630; J1650; J2250; J2270; J2405; J2543; J2704; J3010; J3411; J3475; J3480; J3490; J7030; J7050; J7060; J7070; A4315; G0480

== ENCOUNTER 2024-10-03 08:00 | Emergency (ER) | payer OTHER, MEDICAID ==
[~2024-10-03] VITALS: Ht 167.6 cm; Wt 82.0 kg
[~2024-10-03 08:00] MED LIST changes: -BO1 TP; +FERR-63 PO; +FOLI-43 NG; -INSULIN; +THIA100T72 NG
[2024-10-03 08:03] VITALS: O2SAT 97
[2024-10-03] MEDS: TETANUS, DIPHTHERIA, PERTUSSIS VAC/PF 0.5ML (>10YR OLD) IM ONE (10:22)
[2024-10-03 10:45] VITALS: BP 146/93; PULSE 102; RESP 18; TEMP 36.5; O2SAT 97
== END 2024-10-03 10:47 ==
LOC: ER 08:00
DX: S01.01XA Laceration without foreign body of scalp, initial encounter (principal); S09.90XA Unspecified injury of head, initial encounter; E11.9 Type 2 diabetes mellitus without complications; Z79.899 Other long term (current) drug therapy; X58.XXXA Exposure to other specified factors, initial encounter; Y92.89 Other specified places as the place of occurrence of the external cause; Y93.89 Activity, other specified; Y99.8 Other external cause status
CPT/HCPCS: 12002; 90471; 90715; 99285

== ENCOUNTER 2025-01-27 09:16 | Emergency (ER) | payer MEDICAID ==
[~2025-01-27] VITALS: Ht 167.6 cm; Wt 160.0 kg
[2025-01-27 09:16] VITALS: O2SAT 99
[2025-01-27 10:27] VITALS: BP 136/81; PULSE 88; RESP 17; TEMP 36.9; O2SAT 100
== END 2025-01-27 10:31 ==
LOC: ER 09:36
DX: S30.850A Superficial foreign body of lower back and pelvis, initial encounter (principal); E11.9 Type 2 diabetes mellitus without complications; I10 Essential (primary) hypertension; X58.XXXA Exposure to other specified factors, initial encounter; Y93.89 Activity, other specified; Y92.89 Other specified places as the place of occurrence of the external cause; Y99.8 Other external cause status
CPT/HCPCS: 99284

== ENCOUNTER 2025-01-27 10:37 | Emergency (ER) | payer MEDICAID ==
[~2025-01-27] VITALS: Ht 165.1 cm; Wt 80.0 kg
[2025-01-27 10:40] VITALS: O2SAT 100
[2025-01-27 11:15] LABS: BASOPHILS % 0.9 % (0.0-2.0); EOSINOPHILS % 1.4 % (0.0-5.0); HEMATOCRIT. 41.2 % (42.0-52.0); HEMOGLOBIN. 14.0 g/dL (14.0-18.0); LYMPHOCYTES % 17.2 % (20.0-50.0); MEAN PLATELET VOLUME 7.4 fl (7.4-10.4); MONOCYTES % 7.3 % (2.0-8.0); NEUTROPHILS % 73.2 % (40.0-76.0); PLATELET 305 x1000/uL (130-400); RED BLOOD CELL COUNT 4.91 mill/uL (4.7-6.1); RED CELL DISTRIBUTION WIDTH 14.4 % (11.6-14.6)
[2025-01-27 11:27] LABS: CREATININE 1.0 mg/dL (0.6-1.3); UREA NITROGEN BLOOD 15 mg/dL (9-23)
[2025-01-27 11:28] LABS: ETHANOL BLOOD < 10 mg/dL (<10)
[2025-01-27] MEDS: LIDOCAINE HCL/EPINEPHRINE 1%-EPI 1:100,000 20ML VIAL INFIL ONE (11:33)
[2025-01-27] MEDS: ACETAMINOPHEN 325MG TABLET PO ONE (17:57)
[2025-01-27 19:00] LABS: *AMPHETAMINES SCREEN URINE PRESUMPTIVE POSITIVE (NEGATIVE); *BARBITURATES SCREEN URINE NEGATIVE (NEGATIVE); *BENZODIAZEPINES SCREEN URINE NEGATIVE (NEGATIVE); *COCAINE SCREEN URINE NEGATIVE (NEGATIVE)
[2025-01-27 19:01] LABS: CANNABINOID URINE SCREEN PRESUMPTIVE POSITIVE (NEGATIVE); ECSTASY MDMA SCREEN URINE CONF.TEST INDICATED (NEGATIVE); METHADONE URINE SCREEN NEGATIVE (NEGATIVE); OPIATES URINE SCREEN NEGATIVE (NEGATIVE); PHENCYCLIDINE URINE SCREEN NEGATIVE (NEGATIVE)
[2025-01-28] MEDS: TRAZODONE HCL 50MG TABLET PO SCH (22:35)
[2025-01-29] MEDS: LORAZEPAM 1MG TABLET PO ONE (10:09)
[2025-01-29 14:20] VITALS: BP 119/71; PULSE 100; RESP 18; TEMP 36.6; O2SAT 98
== END 2025-01-29 14:35 | disposition short-term general hospital (02) ==
LOC: ER 10:44
DX: S01.01XA Laceration without foreign body of scalp, initial encounter (principal); R45.851 Suicidal ideations; E11.9 Type 2 diabetes mellitus without complications; I10 Essential (primary) hypertension; Z20.822 Contact with and (suspected) exposure to COVID-19; Z79.899 Other long term (current) drug therapy; X58.XXXA Exposure to other specified factors, initial encounter; Y93.89 Activity, other specified; Y92.89 Other specified places as the place of occurrence of the external cause; Y99.8 Other external cause status
CPT/HCPCS: 80305; 80048; 80307; 80329; 80320; 85025; 36415; 70450; 12001; 99285; 87426; J2004; G0480